=== PATIENT | female | born 1985 ===

== ENCOUNTER 2019-10-07 11:14 | Emergency (ER) | payer OTHER ==
--- NOTE | 2019-10-07 11:29 | ED ---
GI/ HPI - HPI Summary HPI Summary: 33 year old F presenting to [facility] with a chief complaint of vaginal bleeding since this morning. Patient reports lower back pain. The patient rates the pain 1/10 in severity. Symptoms aggravated by nothing. Symptoms alleviated by nothing. The patient is 17 weeks and reports that this is her second . She has had spotting on 1 pad. She states that she has had light spotting previously. She takes Baby Aspirin at night but denies any history of a clotting disorder. Medication list reviewed. Allergy list reviewed. - History of Current Complaint Chief Complaint: EDOBProblems Time Seen by Provider: 10/07/19 11:18 Stated Complaint: 17 WKS PREG/BLEEDING PER PT Hx Obtained From: Patient Onset/Duration: Started Hours Ago Current Severity: Mild Pain Intensity: 1 Location of Pain: Other - Lower back Associated Signs and Symptoms: Positive: Back Pain Aggravating Factor(s): Nothing Alleviating Factor(s): Nothing - Allergy/Home Medications Allergies/Adverse Reactions: Allergies Allergy/AdvReac Type Severity Reaction Status Date / Time No Known Allergies Allergy Verified 10/07/19 11:25 Home Medications: Home Medications Cephalexin CAP* [Keflex CAP*] 500 mg PO BID 5 Days #10 cap 10/07/19 [Rx] PMH/Surg Hx/FS Hx/Imm Hx Endocrine/Hematology History: Reports: Hx Thyroid Disease Denies: Hx Blood Disorders EENT History: Denies: Hx Deafness - Surgical History Surgical History: Yes Surgery Procedure, Year, and Place: Ear surgery Infectious Disease History: No Infectious Disease History: Denies: Traveled Outside the [place] in Last 30 Days - Family History Known Family History: Negative: Hypertension - Social History Alcohol Use: None Hx Substance Use: No Substance Use Type: Reports: None Hx Tobacco Use: No Smoking Status (MU): Never Smoked Tobacco Review of Systems Positive: other - Vaginal bleeding Positive: Other - Lower back pain All Other Systems Reviewed And Are Negative: Yes Physical Exam - Summary Physical Exam Summary: Constitutional: Well-developed, Well-nourished, Alert. (-) Distressed Skin: Warm, Dry HENT: Normocephalic; Atraumatic Eyes: Conjunctiva normal Neck: Musculoskeletal ROM normal neck. (-) JVD, (-) Stridor, (-) Nuchal rigidity Cardio: Rhythm regular, rate normal, Heart sounds normal; Intact distal pulses; Radial pulses are 2+ and symmetric. (-) Murmur Pulmonary/Chest wall: Effort normal. (-) Respiratory distress, (-) Wheezes, (-) Rales Abd: Soft, (-) tenderness, (-) Distension, (-) Guarding, (-) Rebound, bedside ultrasound with positive FCA Musculoskeletal: (-) Edema Lymph: (-) Cervical adenopathy Neuro: Alert, Oriented x3 Psych: Mood and affect Normal Triage Information Reviewed: Yes Vital Signs On Initial Exam: Initial Vitals Temp Pulse Resp BP Pulse Ox 98.4 F 111 18 107/76 99 10/07/19 11:24 10/07/19 11:24 10/07/19 11:24 10/07/19 11:24 10/07/19 11:24 Vital Signs Reviewed: Yes Procedures - Sedation Patient Received Moderate/Deep Sedation with Procedure: No Diagnostics - Vital Signs Vital Signs Temp Pulse Resp BP Pulse Ox 10/07/19 11:24 98.4 F 111 18 107/76 99 - Laboratory Result Diagrams: 10/07/19 11:43 10/07/19 11:43 Lab Statement: Any lab studies that have been ordered have been reviewed, and results considered in the medical decision making process. - Ultrasound Ultrasound Ultrasound Interpretation Completed By: Radiologist Summary of Ultrasound Findings: Single intrauterine gestation with a gestational age of 17 weeks 2 days. determined by today's initial ultrasound. heart activity is noted. There is anterior placenta with complete placenta previa covering the cervical os. ED physician has reviewed this report. GIGU Course/Dx - Course Course Of Treatment: 33 y/o F at 17 weeks p/w vaginal spotting. - denies trauma/intercourse. Some mild back pain. Labs w bacteria in UA, will treat w keflex. US w placenta previa. D/w OB, patient given precautions. Blood type O positive. Follow up w OB Wednesday. - Diagnoses Provider Diagnoses: Placenta previa, Vaginal bleeding, UTI (urinary tract infection) - Physician Notifications Discussed Care Of Patient With: Josh Redmond Time Discussed With Above Provider: 12:45 Instructed by Provider To: Other - Discussed with Dr. Redmond who recommends the patient follow-up with her OB on Wednesday and to advise the patient to avoid intercourse or strenuous exercise. Discharge ED - Sign-Out/Discharge Documenting (check all that apply): Patient Departure - Discharge Plan Condition: Stable Disposition: HOME Prescriptions: Cephalexin CAP* [Keflex CAP*] 500 mg PO BID 5 Days #10 cap Patient Education Materials: Placenta Previa (ED), Urinary Tract Infection in (ED) Referrals: No Primary Care Phys,NOPCP [Primary Care Provider] - Additional Instructions: You were seen in the ER for vaginal bleeding. We spoke with our OB who recommends that you avoid strenuous exercise, sexual intercourse, heavy lifting. Follow up with your OB on Wednesday and let them know you were seen here for vaginal bleeding. Return for worsening bleeding, pain, loss of fluid, contractions. It was a pleasure taking care of you today. - Billing Disposition and Condition Condition: STABLE Disposition: Home - Attestation Statements Document Initiated by Fabianibarchelle: Yes Documenting Scribe: Saranya Marquez Provider For Whom [facility] is Documenting (Include Credential): Sarina Rios MD Scribe Attestation: I, Saranya Marquez, scribed for Sarina Rios MD on 10/07/19 at 1306. Scribe Documentation Reviewed: Yes Provider Attestation: The documentation as recorded by the Saranya jolly accurately reflects the service I personally performed and the decisions made by me, Sarina Rios MD Status of Scribe Document: Viewed
[2019-10-07 11:49] LABS: ABS Eosinophils 0.1 10^3/ul (0-0.6); ABS Lymphocytes 1.9 10^3/ul (1.0-4.8); ABS Monocytes 0.5 10^3/ul (0-0.8); ABS Neutrophils 6.3 10^3/ul (1.5-7.7); Eosinophil % 1.2 %; Hematocrit 34 % (35-47); Hemoglobin 11.8 g/dL (12.0-16.0); Lymphocyte % 21.3 %; Mean Corpuscular HGB Conc 35 g/dL (31-36); Mean Corpuscular Hemoglobin 32 pg (27-31); Mean Corpuscular Volume 91 fL (80-97); Mean Platelet Volume 6.2 fL (7.4-10.4); Platelet Count 265 10^3/uL (150-450); Red Blood Count 3.72 10^6 /uL (3.70-4.87); Red Cell Distribution Width 13 % (10-15); White Blood Count 8.8 10^3/uL (3.5-10.8)
--- OUTSIDE RECORDS SUMMARY | 2019-10-07 12:00 | XMS REPORT | Continuity of Care Document ---
:1985 External Reference #:[id number] Author Name Leida Masy CNM Address [address] [place] [address] Problems Active Problems Provider Date Recurrent loss Rod Machado M.D. Onset: 07/26/2019 Social History Type Date Description Comments Sex Unknown Cigarette Use Does Not Smoke Cigarettes ETOH Use Denies alcohol use Recreational Drug Use Denies Drug Use Tobacco Use Start: Unknown Patient has never smoked Smoking Status Reviewed: 08/15/19 Patient has never smoked Exercise Type/Frequency Exercises regularly Seat Belt/Car Seat Always uses seat belt Allergies, Adverse Reactions, Alerts Description No Known Drug Allergies Medications Active Medications SIG Qnty Indications Ordering Provider Date Levothyroxine Sodium 1 by mouth 90tabs Rod Machado, 07/27/2019 every day M.D. 88mcg Tablets Aspirin 81 Low Dose 1 by mouth 90units Rod Machado, 07/26/2019 81mg every day M.D. Chewtabs Vitamin D 1 by mouth Unknown 25mcg (1000 Ut) every day Tablets Multivitamin 1 tablet by Unknown Plus Dha mouth daily 27-0.8-250mg Capsules History Medications Progesterone Micronized 1 by mouth every 14caps Rod Machado, 2019 - day M.D. 07/27/2019 200mg Capsules Medications Administered in Office Medication SIG Qnty Indications Ordering Provider Date PT SCRN Tbco Id as Non User Leida Mays CNM 08/15/2019 Injection PT SCRN Tbco Id as Non User Thomas Heredia CNM 08/03/2019 Injection PT SCRN Tbco Id as Non User Rod Machado M.D. 07/26/2019 Injection Immunizations Description No Information Available Vital Signs Date Vital Result Comment 08/15/2019 2:11pm BP Systolic 114 mmHg BP Diastolic 76 mmHg Height 64 inches 5'4" Weight 202.00 lb BMI (Body Mass Index) 34.7 kg/m2 Last Menstrual Period [id number] 4 Parity 1 08/03/2019 9:22am BP Systolic 112 mmHg BP Diastolic 68 mmHg Height 64 inches 5'4" Weight 205.00 lb BMI (Body Mass Index) 35.2 kg/m2 Last Menstrual Period [id number] 4 Parity 1 Results Test Acquired Date Facility Test Result H/L Range Note Laboratory test 07/26/2019 [facility] HCG 70711.00 [address] [place] [address] mIU/mL [phone] Type And Screen 07/26/2019 [facility] [place] [address] Type [phone] Antibody Screen NEGATIVE Laboratory test 07/26/2019 [facility] Progesterone 20.7 ng/mL [address] [place], [place] [address] [phone] T4 Free 0.95 ng/dL Normal 0.61-1.12 3 TSH 6.79 mcIU/mL High 0.34-5.60 4 1 <5.0 Negative 5.0 - 25.0 Indeterminate (Repeat testing recommended after 72 hours) >25.0 Positive Perimenopausal women can display HCG levels of up to 20 mIU/mL 2 Female reference ranges for Progesterone: Follicular phase.......0.3 - 1.5 ng/ml Mid-luteal phase.......5.2 - 18.5 ng/ml Postmenopausal.........< 0.8 ng/ml 1st trimester.........4.7 - 50.0 ng/ml 2nd trimester.........19.4 - 45.3 ng/ml 3 [id number] Procedures Date Code Description Status 08/15/2019 55549 OB Ultrasound First Trimester Completed 08/03/2019 17890 OB Ultrasound First Trimester Completed 07/26/2019 77241 Echography Uterus Limited Completed Medical Devices Description No Information Available Encounters Type Date Location Provider Dx Diagnosis Office Visit 08/15/2019 [facility] Office Leida Mays, CAITLYN O26.91 related 2:30p conditions, unspecified, first trimester N83.209 Unspecified ovarian cyst, unspecified side Office Visit 08/03/2019 9:30a [facility] Office Thomas Heredia, O26.91 related [facility] conditions, unspecified, first trimester N83.291 Other ovarian cyst, right side E03.9 Hypothyroidism, unspecified E66.9 Obesity, unspecified Office Visit 07/26/2019 9:[facility]a [facility] Rod Machado, N96 Recurrent M.D. loss N91.1 Secondary amenorrhea O36.80x1 with inconclusive viability, fetus 1 Assessments Date Code Description Provider 08/15/2019 O26.91 related conditions, unspecified, Leida Mays CNM first trimester 08/15/2019 O26.91 related conditions, unspecified, Ultrasounds first trimester 08/15/2019 N83.209 Unspecified ovarian cyst, unspecified side Leida Mays CNM 08/15/2019 N83.209 Unspecified ovarian cyst, unspecified side Ultrasounds 08/03/2019 O26.91 related conditions, unspecified, Мария Matias MD first trimester 08/03/2019 O26.91 related conditions, unspecified, Thomas Heredia CNM first trimester 08/03/2019 O26.91 related conditions, unspecified, Ultrasounds first trimester 08/03/2019 N83.291 Other ovarian cyst, right side Thomas Heredia CNM 08/03/2019 E03.9 Hypothyroidism, unspecified Thomas Heredia CNM 08/03/2019 E66.9 Obesity, unspecified Thomas Heredia CNM 07/26/2019 N96 Recurrent loss Rod Machado M.D. 07/26/2019 N91.1 Secondary amenorrhea Rod Machado M.D. 07/26/2019 O36.80x1 with inconclusive Rod Machado M.D. viability, fetus 1 Plan of Treatment Future Appointment(s):08/30/2019 9:30 am - Nazia Lopez CNM at [facility] 9:00 am - Ultrasounds at [facility]08/03/2019 - IRENE JaegerMO26.91 related conditions, unspecified, first trimesterComments:We reviewed the importance of self care by a healthy, well balanced diet, regular sleep and mild to moderate exercise.You are taking a daily vitamin and I encourage you to continue doing soThyroid control in is very important. Continue your updated dose of thyroid medication and we will re- check your labs at your next visit in 2 weeksGreat Expectations Booklet provided for you to review. Will re-visit at new ob intake in 2 jizozJ84.291 Other ovarian cyst, right sideComments:We discussed the warning signs for surgical abdomen including worsening pain/when to seek urgent evaluation through our office or the ER. We will re-check the cyst in 2 weeks by [id number] Hypothyroidism, [id number] Obesity, unspecified Functional Status Description No Information Available Mental Status Description No Information Available Referrals Description No Information Available
[2019-10-07 12:06] LABS: Albumin 3.9 g/dL (3.2-5.2); Albumin/Globulin Ratio 1.3 (1-3); BUN/Creatinine Ratio 9.9 (8-20); Calcium 9.7 mg/dL (8.6-10.3); EGFR Non-African American 94.2 (>60); Potassium 3.8 mmol/L (3.5-5.0); Total Bilirubin 0.6 mg/dL (0.2-1.0); Total Protein 6.9 g/dL (6.4-8.9)
[2019-10-07 12:45] LABS: Urine Appearance Cloudy; Urine Bilirubin Negative (Negative); Urine Blood 3+ (Negative); Urine Glucose Negative (Negative); Urine Ketones Negative (Negative); Urine Nitrite Negative (Negative); Urine Protein Negative (Negative); Urine Specific Gravity 1.003 (1.010-1.030); Urine Urobilinogen Negative (Negative)
[2019-10-07 12:46] LABS: Urine Bacteria 3+ (Absent); Urine Color Amber; Urine Red Blood Cell 3+(>10/hpf) (Absent); Urine Squamous Epithelial Cell Present (Absent); Urine White Blood Cell 3+(>20/hpf) (Absent)
[2019-10-07 13:12] VITALS: BP 110/64
== END 2019-10-07 13:11 | disposition home or self-care (01) ==
LOC: ED 11:14
DX: O23.42 Unspecified infection of urinary tract in pregnancy, second trimester (principal); O44.12 Complete placenta previa with hemorrhage, second trimester; Z3A.17 17 weeks gestation of pregnancy; E03.9 Hypothyroidism, unspecified; M54.5 Low back pain; Z79.899 Other long term (current) drug therapy
CPT/HCPCS: 36415; 76815; 80053; 81003; 81015; 85025; 87086; 99282

== ENCOUNTER 2020-03-14 08:43 | Inpatient (IN) ==
[2020-03-14] MEDS ORDERED: Lactated Ringers 1000 ml BAG 1,000 ML IV ONE (09:09)
[2020-03-14] MEDS ORDERED: Penicillin G Potassium IV 5,000,000 UNITS in NS 0.9% 100 ml BAG 100 ML IVPB ONE (09:30)
[2020-03-14 09:49] LABS: ABS Eosinophils 0.1 10^3/ul (0-0.6); ABS Lymphocytes 1.8 10^3/ul (1.0-4.8); ABS Monocytes 0.7 10^3/ul (0-0.8); ABS Neutrophils 6.1 10^3/ul (1.5-7.7); Eosinophil % 1.1 %; Hematocrit 35 % (35-47); Lymphocyte % 20.7 %; Mean Corpuscular HGB Conc 35 g/dL (31-36); Mean Corpuscular Hemoglobin 32 pg (27-31); Mean Corpuscular Volume 92 fL (80-97); Mean Platelet Volume 6.6 fL (7.4-10.4); Platelet Count 245 10^3/uL (150-450); Red Cell Distribution Width 14 % (10-15); White Blood Count 8.7 10^3/uL (3.5-10.8)
[2020-03-14] MEDS ORDERED: Oxytocin in LR 20 UNITS/1,000 ML BAG IVPB SCH ×2 (10:00→23:45)
[2020-03-14] MEDS ORDERED: Lactated Ringers 1000 ml BAG 1,000 ML IV SCH ×2 (10:00→23:45)
[2020-03-14 10:09] LABS: Urine Benzodiazepine Screen None Detected (None Detect); Urine Cannabinoids Screen None Detected (None Detect); Urine Opiates Screen None Detected (None Detect)
[2020-03-14] MEDS ORDERED: Penicillin G Potassium IV 3,000,000 UNITS in NS 0.9% 100 ml BAG 100 ML IVPB SCH (16:00)
[2020-03-14] MEDS ORDERED: OBEPIDURAL 250 ML EPIDURAL ONE (17:39)
[2020-03-14] MEDS ORDERED: Sodium Citrate/Citric Acid LIQ 15 ML UDC PO PRN (18:36)
[2020-03-14] MEDS ORDERED: Phenylephrine 40 mcg/mL 10mL (400mcg) SYRINGE IV PUSH PRN (18:36)
[2020-03-14] MEDS ORDERED: EPHEDrine (Pressors) 50 MG/ML VIAL IV PUSH PRN (18:36)
[2020-03-14] MEDS ORDERED: OBEPIDURAL 250 ML EPIDURAL SCH (19:00)
[2020-03-14] MEDS ORDERED: NS 0.9% 100 ml BAG 100 ML ONE (21:24)
[2020-03-14] MEDS ORDERED: Dibucaine 1% OINT 28.35 GM TUBE PR PRN (23:04)
[2020-03-14] MEDS ORDERED: Methylergonovine 0.2 mg AMPULE 1 ml AMP IM ONE (23:04)
[2020-03-14] MEDS ORDERED: Witch Hazel PAD JAR TOPICAL PRN (23:04)
[2020-03-15] MEDS ORDERED: Lidocaine 1% VIAL 10 MG/ML VIAL ONE (02:31)
[2020-03-15 06:46] LABS: ABS Eosinophils 0.1 10^3/ul (0-0.6); ABS Lymphocytes 1.8 10^3/ul (1.0-4.8); ABS Monocytes 1.1 10^3/ul (0-0.8); ABS Neutrophils 9.4 10^3/ul (1.5-7.7); Eosinophil % 0.5 %; Hematocrit 30 % (35-47); Hemoglobin 10.5 g/dL (12.0-16.0); Lymphocyte % 14.9 %; Mean Corpuscular HGB Conc 35 g/dL (31-36); Mean Corpuscular Hemoglobin 32 pg (27-31); Mean Corpuscular Volume 91 fL (80-97); Mean Platelet Volume 6.3 fL (7.4-10.4); Platelet Count 189 10^3/uL (150-450); Red Blood Count 3.31 10^6 /uL (3.70-4.87); Red Cell Distribution Width 14 % (10-15); White Blood Count 12.4 10^3/uL (3.5-10.8)
[2020-03-16 07:57] VITALS: BP 122/71
== END 2020-03-16 16:54 | disposition home or self-care (01) | DRG 807 ==
LOC: MCHOBOUT 08:43 → MCHOB 09:16
PROVIDERS: ADMIT Obstetrics & Gynecology; ATTEND Obstetrics & Gynecology